=== PATIENT | female | born 1960 | race Caucasian/White ===

== ENCOUNTER 2020-04-13 09:22 | Emergency (ER) | payer OTHER ==
[~2020-04-13] VITALS: Ht 157.5 cm; Wt 88.9 kg
[2020-04-13 09:23] VITALS: Ht 157.5 cm; Wt 88.9 kg
[2020-04-13 11:34] LABS: CALCIUM 8.7 mg/dL (8.5-10.1); CARBON DIOXIDE 24.3 mmol/L (21-32); CHLORIDE SERUM 99 mmol/L (98-107); GFR1 > 60 mL/min; GLUCOSE SERUM 117 mg/dL (74-106); POTASSIUM SERUM 3.7 mmol/L (3.5-5.1); SODIUM SERUM 136 mmol/L (136-145)
[2020-04-13 11:48] LABS: ALKALINE PHOSPHATASE 63 U/L (46-116); ALT/SGPT 24 U/L (14-59); AST/SGOT 19 U/L (15-37); BILIRUBIN TOTAL 0.5 mg/dL (0.20-1.00); C REACTIVE PROTEIN 7.1 mg/dL (<=0.9); LACTIC DEHYDROGENASE (LDH) 186 U/L (100-190); TOTAL PROTEIN, SERUM 7.3 g/dL (6.4-8.2)
[2020-04-13 12:10] LABS: BASOPHIL % 0.1 % (0.2-1.3); PLATELET COUNT 163 x10^3mcL (179-408); RED CELL DISTRIBUTION WIDTH 13.6 % (12.3-17.7)
[2020-04-13 13:05] LABS: microscopic required? NO
[2020-04-13 14:13] LABS: UA SPECIFIC GRAVITY 1.025 (1.005-1.035); urine erythrocyte NEGATIVE (NEGATIVE)
[2020-04-13 18:42] VITALS: BP 111/68
== END 2020-04-13 18:42 | disposition home or self-care (01) ==
LOC: ED 09:22
PROVIDERS: Emergency Medicine
DX: U07.1 COVID-19 (principal); J12.89 Other viral pneumonia; E86.0 Dehydration
CPT/HCPCS: 36600; 83880; 85378; 87804; J2405; J2543; J7030; M0239; Q0239

== ENCOUNTER 2020-04-18 22:30 | Emergency (ER) | payer OTHER, SELFPAY ==
[~2020-04-18] VITALS: Ht 160 cm; Wt 89.8 kg
[2020-04-18 22:33] VITALS: Ht 160 cm; Wt 89.8 kg
[2020-04-18 23:31] LABS: BASOPHIL % 0.1 % (0.2-1.3); PLATELET COUNT 262 x10^3mcL (179-408); RED CELL DISTRIBUTION WIDTH 13.5 % (12.3-17.7)
[2020-04-18 23:52] LABS: CARBON DIOXIDE 26.5 mmol/L (21-32); CHLORIDE SERUM 98 mmol/L (98-107); GFR1 > 60 mL/min; GLUCOSE SERUM 155 mg/dL (74-106); POTASSIUM SERUM 4.1 mmol/L (3.5-5.1); SODIUM SERUM 135 mmol/L (136-145)
[2020-04-18 23:56] LABS: ALKALINE PHOSPHATASE 51 U/L (46-116); ALT/SGPT 32 U/L (14-59); AST/SGOT 4 U/L (15-37); BILIRUBIN TOTAL 0.33 mg/dL (0.20-1.00); TOTAL PROTEIN, SERUM 7.4 g/dL (6.4-8.2)
[2020-04-18 23:57] LABS: ALBUMIN 3.1 g/dL (3.4-5.0)
[2020-04-19 00:53] VITALS: BP 136/79
== END 2020-04-19 00:53 | disposition home or self-care (01) ==
LOC: ED 22:30
PROVIDERS: Emergency Medicine
DX: R05 Cough (principal); R06.02 Shortness of breath; Z20.828 Contact with and (suspected) exposure to other viral communicable diseases